=== PATIENT | male | born 1955 | race Caucasian/White ===

== ENCOUNTER 2019-04-20 13:26 | Inpatient (IN) | payer OTHER ==
[~2019-04-20] VITALS: Ht 170.3 cm; Wt 97.7 kg
[~2019-04-20 13:26] MED LIST: ASPIRIN E.C. 8181 MG PO; B-121000 MCG PO; CARDIZEM 30MG T30 MG PO; ELIQUIS 5MG PO; FISH OIL 1000MG1 CAP PO; HCTZ 25MG TAB25 MG PO; LIPITOR 80MG80 MG PO; PRILOSEC 20MG20 MG PO; PRINIVIL40 MG PO; PROSCAR 5MG5 MG PO; TAMBOCOR150 MG PO
[2019-08-07] VITALS (13 sets, daily range): BP systolic 120–153; BP diastolic 57–83; PULSE 53–78; TEMP 97.4–98.5
[2019-08-07] MEDS ORDERED: PROAIR HFA0.09 MG/AC IH (04:24)
[2019-08-07] MEDS ORDERED: COREG12.5 MG PO (04:25)
[2019-08-07] MEDS ORDERED: COZAAR 50MG50 MG/TAB PO ×2 (04:30)
[2019-08-07] MEDS ORDERED: STRIVERDI2.5 MCG/Ac IH (04:31)
[2019-08-07] MEDS ORDERED: MULTI-VITAMIN W1 TA1 PO (04:31)
[2019-08-07] MEDS ORDERED: CRESTOR40 MG PO (06:00)
[2019-08-07] MEDS ORDERED: SYSTANE 0.4%-0.1 SOL OP (06:01)
[2019-08-07] MEDS ORDERED: FLONASE SENSIM9.9 ML NS (06:05)
--- NOTE | 2019-08-07 10:06 | NUR ---
Initial visit with family while patient was in "Recovery". Family thanked [employer] Set Up Operator for looking in on them and planning to visit with Vitor post surgery.
--- NOTE | 2019-08-07 10:30 | NUR ---
PATIENT ADMITED INTO ROOM 328 POST OP LTK. A&O. VSS. DENIES PAIN IN LLE. PATIENT IS UNABLE TO MOVE BLE AT THIS TIME. LTK DRESSING IS CD&I WITH ACEWRAP. TEDS TO RLE. SCD'S TO BLE. POSITIVE PEDAL PULSES TO BLE. NO C/O N/V. LIQUIDS AT BEDSIDE. IV FLUIDS INFUSING VIA PUMP INTO LEFT HAND. BS IN PACU WAS 119. PATIENT WAS ST. CATHED IN PACU FOR 600CC. HEAD TO TOE WNL. FAMILY AT BEDSIDE. NO OTHER NEEDS AT THIS TIME. CALL LIGHT IN REACH.
--- NOTE | 2019-08-07 16:30 | NUR ---
DOMINGO met with the patient and the patient's daughter, Clara to complete initial assessment. DOMINGO obtained permission to continue with Clara in the room. The patient lives alone in [place]. The patient has a walker and CPAP and reports independence with ADLs. The patient's PCP is Dr. Tom Clayton and patient receives medications from [email or web address] in [place] and via mail from [facility]. The patient does not have advanced directives in the EMR. The patient has three daughters, Clara, Virgie, and More. The patient plans to return home with outpatient physical therapy in [place] with first appointment is on Wednesday, 08/11. Virgie will provide transportation. There are no additional needs at this time.
--- NOTE | 2019-08-07 20:59 | NUR ---
Medicated with HS meds including Oxycodone 10mg po for pain 9/10 to left knee. Has large drsg on left knee, with kylah wrap covering. Good CSM noted. Using urinal without problem. Is alert and oriented x4. IVF infusing to left hand without redness or swelling. Taking oral fluids well.
--- NOTE | 2019-08-07 23:30 | NUR ---
Patient ambulated almost to bedroom door, experiencing significant pain with walking to left knee. Back to bed and positioned for comfort. Medicated with [place] 7.5mg 2 tabs po at this time. Assisted with CPAP application.
[2019-08-08 04:21] VITALS: BP 157/76; PULSE 78; TEMP 98.1
--- NOTE | 2019-08-08 04:24 | NUR ---
Capped IVF at this time, drinking well. Medicated with [place] 7.5mg 2 tabs po for pain 6/10 to left knee.
--- NOTE | 2019-08-08 06:45 | NUR ---
awake and sitting up in bed eating breakfast, bedside shift report received from JAVED Grant
--- NOTE | 2019-08-08 07:15 | NUR ---
had breakfast and tolerated well, full assessment completed, see interventions for further info, c/o pain 11/25 and medicated with roxicodone 10mg, denies other needs
--- NOTE | 2019-08-08 08:18 | NUR ---
resting in bed, states pain is better since having pain pill, had c/o some mild nausea but states it is also better, will try to rest until therapy
[2019-08-08 08:40] VITALS: BP 158/82; PULSE 78; TEMP 98.2
--- NOTE | 2019-08-08 09:29 | NUR ---
physicial therapy in to work with patient, up and ambulating out in sneed
--- NOTE | 2019-08-08 10:41 | NUR ---
appears to be sleeping, in chair with lights off, eyes closed, resp quiet and easy
--- NOTE | 2019-08-08 11:12 | NUR ---
Follow-up visit; Patient thanked Photography Colorist for looking in on him and offering God's blessings. Chaplalin will keep patient in her prayers per request.
--- NOTE | 2019-08-08 11:35 | NUR ---
sitting up in chair ready to eat lunch, c/o pain 5/10 and medicated with hydrocodone 7.5mg 2 tabs, assisted up to bathroom and then back to chair
--- NOTE | 2019-08-08 11:46 | NUR ---
antibiotic infused, INT discontinued and discharged ambulatory
[2019-08-08 12:13] VITALS: BP 159/70; PULSE 78; TEMP 98
--- NOTE | 2019-08-08 12:30 | NUR ---
resting in chair, states pain was relieved with pain pills but thinks he is taking too many, when questioned he says they make him "feel funny", will monitor
--- NOTE | 2019-08-08 13:05 | NUR ---
ambulated out to sneed with physical therapy for group exercises
--- NOTE | 2019-08-08 16:20 | NUR ---
appears to continue to sleep,
[2019-08-08 17:00] VITALS: BP 173/80; PULSE 79; TEMP 98.5
--- NOTE | 2019-08-08 18:45 | NUR ---
up in recliner, bedside shift report given to JAVED Grant
--- NOTE | 2019-08-08 20:02 | NUR ---
Patient assisted to bathroom then to bed. Reports pain to left knee 12/26. Medicated with HS meds including [place] 7.5mg 2 tabs at this time. Left knee with Aquacel in place. Good CSM of left leg. SL to left hand without redness or swelling.
[2019-08-08 20:41] VITALS: BP 158/77; PULSE 76; TEMP 99.1
[2019-08-09 00:04] VITALS: BP 152/68; PULSE 76; TEMP 98.6
--- NOTE | 2019-08-09 00:20 | NUR ---
Patient resting with CPAP on, denies need for pain meds at this time.
[2019-08-09 04:33] VITALS: BP 169/78; PULSE 77; TEMP 98.5
--- NOTE | 2019-08-09 04:36 | NUR ---
Medicated with [place] 7.5mg 2 tabs po for pain to left knee 12/26. Watching TV.
[2019-08-09] MEDS ORDERED: ROXICODONE 55 MG/TAB PO (06:44)
[2019-08-09] MEDS ORDERED: NORCO 325 MG-7.1 TAB PO (06:44)
--- NOTE | 2019-08-09 07:33 | NUR ---
Report from Juanita Aguayo.
[2019-08-09 08:36] VITALS: BP 164/67; PULSE 79; TEMP 98
--- NOTE | 2019-08-09 10:26 | NUR ---
PT OUT TO [facility] FOR THERAPY STEADY GAIT. REFRESHED ICE AFTER THERAPY. PT TOLERATING WELL. PAIN CONTROLLED WITH PO MEDS AT THIS TIME. PLAN ON DISCHARGE AFTER PM THERAPY.
[2019-08-09 12:39] VITALS: BP 150/62; PULSE 88; TEMP 99.4
--- NOTE | 2019-08-09 14:13 | NUR ---
PROVIDED DISCHARGE INSTRUCTIONS AND AN AQUACEL TO BE CHANGED ON POD 7 AND THEN LEFT INPLACED UNTIL FOLLOW UP. PATIENT LEFT IN WHEEL CHAIR TO POV.
== END 2019-08-09 14:00 | disposition home or self-care (01) | DRG 470 ==
LOC: JCC 05-15 10:15
PROVIDERS: ADMIT Orthopaedic Surgery
PROC: 0SRD0J9 Replacement of Left Knee Joint with Synthetic Substitute, Cemented, Open Approach (ICD-10-PCS; principal; 2019-08-07 07:30)
DX: M17.12 Unilateral primary osteoarthritis, left knee (principal); J44.9 Chronic obstructive pulmonary disease, unspecified; E78.00 Pure hypercholesterolemia, unspecified; I10 Essential (primary) hypertension; I48.91 Unspecified atrial fibrillation; K21.9 Gastro-esophageal reflux disease without esophagitis; Z79.01 Long term (current) use of anticoagulants; Z87.891 Personal history of nicotine dependence; Z87.11 Personal history of peptic ulcer disease
CPT/HCPCS: A9284; C1776; J0690; J2250; J2704; J3010; J7030; J7042